=== PATIENT | male | born 1960 | race African-American/Black ===

== ENCOUNTER 2022-04-16 06:42 | Observation (INO) | payer OTHER, MEDICAID ==
[2022-04-16] MEDS ORDERED: Morphine 4 MG/ML VIAL ONE (08:03)
[2022-04-16] MEDS ORDERED: Piperacillin/Tazobactam 4.5 GM VIAL ONE (08:16)
[2022-04-16] MEDS ORDERED: Pantoprazole 40 MG VIAL ONE (08:17)
[2022-04-16 10:53] LABS: SARS-CoV-2 NAA Rapid Test Not Detected (NotDetected)
[2022-04-16] MEDS ORDERED: Midazolam HCl 2 mg/2 ml Vial ONE (11:14)
[2022-04-16] MEDS ORDERED: Lidocaine 2% MPF 10 ML AMP (For Epidural Use) ONE (11:14)
[2022-04-16] MEDS ORDERED: PROPOFOL 0 ML ONE (11:14)
[2022-04-16] MEDS ORDERED: PROPOFOL 20 ML ONE (11:25)
[2022-04-16] MEDS ORDERED: Acetaminophen 650 MG Suppository PR PRN (12:15)
[2022-04-16] MEDS ORDERED: Ondansetron PF 4 MG/2 ML Vial IVP PRN (12:15)
[2022-04-16 12:37] VITALS: BMI 21.8
[2022-04-16] MEDS: Sodium Chloride 0.9% 1,000 ML IV SCH (13:46)
[2022-04-16] MEDS: Piperacillin/Tazobactam 3.375 GM in Sodium Chloride 0.9% 100 ML IVPB SCH ×2 (13:46→21:02)
[2022-04-16 16:43] LABS: Bilirubin Neg (Negative); Blood, Urine Negative (Negative); Glucose, Urine (Dipstick) Normal (Negative); Ketone, Urine Negative (Negative); Leukocyte Negative (Negative); Nitrite Negative (Negative); Protein, Urine (Dipstick) Negative (Neg-Trace); Urobilinogen Normal mg/dL (Less than 2)
[2022-04-16 16:53] LABS: Bacteria/HPF None Seen HPF (None Seen); Clarity Clear (Clear); RBC/HPF 0-3 HPF (0-3); Squamous Epithelial 0-3 HPF (0-3); Urine Culture Reflex No No; WBC/HPF 0-3 HPF (0-3)
[2022-04-16] MEDS ORDERED: Morphine 2 MG/ML VIAL SLOW IVP PRN (19:45)
[2022-04-16] MEDS ORDERED: Sodium Chloride 0.9% 500 ML IV SCH (19:45)
[2022-04-16] MEDS ORDERED: Morphine 4 MG/ML VIAL SLOW IVP PRN (19:45)
[2022-04-16] MEDS: Famotidine/PF 20 mg/2ml Vial SLOW IVP SCH (21:02)
[2022-04-17 05:45] LABS: Hemoglobin 13.9 g/dL (13.5-17.5); Mean Corpuscular HGB CONC 34.6 g/dL (32.0-36.0); Mean Corpuscular Hemoglobin 29.8 pg (27.0-33.0); Mean Corpuscular Volume 86.3 fl (81.2-95.1); Mean Platelet Volume 9.4 fl (7.4-10.4); Platelet Count 255 10x3/uL (150-450); RBC Distribution Width 12.4 % (11.5-14.5); Red Blood Cell (RBC) Count 4.66 10x6/uL (4.32-5.72); White Blood Cell (WBC) Count 36.2 10x3/uL (3.5-10.5)
[2022-04-17] MEDS: Piperacillin/Tazobactam 3.375 GM in Sodium Chloride 0.9% 100 ML IVPB SCH ×2 (05:45→13:57)
[2022-04-17 06:45] LABS: ALT (SGPT) 25 U/L (8-55); AST (SGOT) 27 U/L (5-34); Albumin 3.7 g/dL (3.4-4.8); Alkaline Phosphatase 80 U/L (40-110); Anion Gap 17 mmol/L (10-20); BUN (Urea Nitrogen) 11 mg/dL (8.4-25.7); Bilirubin, Total 0.8 mg/dL (0.2-1.2); Calc. Creatinine Clearance 65 mL/min (70-130); Calcium 9.5 mg/dL (7.8-10.44); Carbon Dioxide 23 mmol/L (23-31); Chloride 100 mmol/L (98-107); Estimated GFR 70; Globulin 3.2 g/dL (2.4-3.5); Glucose 117 mg/dL (80-115); Potassium 4.2 mmol/L (3.5-5.1); Protein, Total 6.9 g/dL (5.8-8.1); Sodium 136 mmol/L (136-145)
[2022-04-17 07:40] LABS: MDiff Complete? YES
[2022-04-17 07:41] LABS: Platelet Morphology Comment Appears Adequate
[2022-04-17 07:42] LABS: Band 4 % (5-11); Lymphocytes 6 % (21-51); Monocytes 5 % (0-10); Neutrophil 85 % (42-75)
[2022-04-17] MEDS ORDERED: Bupivacaine PF 0.5% 30 ML VIAL ONE (07:43)
[2022-04-17] MEDS ORDERED: EPINEPHrine 1 MG/ML AMP ONE (07:43)
[2022-04-17] MEDS ORDERED: Iopamidol 0 ML ONE (07:44)
[2022-04-17] MEDS ORDERED: Dexamethasone 4 mg/ml Vial ONE (08:52)
[2022-04-17] MEDS ORDERED: Ondansetron PF 4 MG/2 ML Vial ONE (08:52)
[2022-04-17] MEDS ORDERED: Midazolam HCl 2 mg/2 ml Vial ONE (08:52)
[2022-04-17] MEDS ORDERED: Ketorolac Tromethamine 30 MG/ML VIAL ONE (08:52)
[2022-04-17] MEDS ORDERED: Rocuronium Bromide 10 MG/ML (10ML VIAL) ONE (08:52)
[2022-04-17] MEDS ORDERED: Glycopyrrolate 0.2 MG/ML 5 ML SYRINGE ONE (08:52)
[2022-04-17] MEDS ORDERED: Fentanyl 250 MCG/5 ML VIAL ONE (08:52)
[2022-04-17] MEDS ORDERED: Lidocaine 1% PF 5 ML VIAL ONE (08:52)
[2022-04-17] MEDS ORDERED: PROPOFOL 20 ML ONE (08:52)
[2022-04-17] MEDS ORDERED: Pantoprazole 40 MG VIAL IVP SCH (09:00)
[2022-04-17] MEDS ORDERED: PHENYLEPHRINE-NS 100 MCG/ML 10 ML SYRINGE ONE (09:25)
[2022-04-17] MEDS ORDERED: HYDROcodone/Acetaminophen 5/325 mg Tablet PO PRN ×2 (10:45)
[2022-04-17] MEDS: Famotidine/PF 20 mg/2ml Vial SLOW IVP SCH (12:07)
[2022-04-17] MEDS: Sodium Chloride 0.9% 1,000 ML IV SCH (13:57)
[2022-04-17 16:19] VITALS: BP 136/97; TEMP 97.7
== END 2022-04-17 19:20 | disposition home or self-care (01) ==
LOC: CSHERS 06:42 → INTOOBSV 09:37 → CSHERHOLD 09:37 → CSHTELE 12:20
PROVIDERS: ADMIT Hospitalist; ATTEND Hospitalist
PROC: 0DB98ZZ Excision of Duodenum, Via Natural or Artificial Opening Endoscopic (ICD-10-PCS; principal; 2022-04-16)
PROC: 0DB68ZZ Excision of Stomach, Via Natural or Artificial Opening Endoscopic (ICD-10-PCS; 2022-04-16)
PROC: 0FT44ZZ Resection of Gallbladder, Percutaneous Endoscopic Approach (ICD-10-PCS; 2022-04-17)
DX: K29.50 Unspecified chronic gastritis without bleeding (principal); K80.00 Calculus of gallbladder with acute cholecystitis without obstruction; K82.A1 Gangrene of gallbladder in cholecystitis; B96.81 Helicobacter pylori [H. pylori] as the cause of diseases classified elsewhere; K66.0 Peritoneal adhesions (postprocedural) (postinfection); K82.8 Other specified diseases of gallbladder; E11.9 Type 2 diabetes mellitus without complications; Z20.822 Contact with and (suspected) exposure to COVID-19; I10 Essential (primary) hypertension; E78.00 Pure hypercholesterolemia, unspecified; F03.90 Unspecified dementia, unspecified severity, without behavioral disturbance, psychotic disturbance, mood disturbance, and anxiety; K21.9 Gastro-esophageal reflux disease without esophagitis; F17.210 Nicotine dependence, cigarettes, uncomplicated; Z79.899 Other long term (current) drug therapy
CPT/HCPCS: 43239; 47562; 76705; 80053; 81001; 82962 ×2; 83605; 85025; 87040; 87149; 96372; 96374; 96375; 96376 ×2; 99285; C1713; G0378 ×3; U0002; 36415; 36416; 88304; 88305; 88342; C9113; J0171; J1100; J1885; J2250; J2270; J2405; J2543; J2704; J3010; J3490; J7030; J7050; Q9967; S0020; S0028

== ENCOUNTER 2025-06-19 08:31 | Outpatient (CLI) | payer OTHER ==
[2025-06-19] MEDS ORDERED: Iopamidol 300 61% 100 ML VIAL FS ONE (09:38)
[2025-06-19 10:16] LABS: Estimated GFR - POC 29.0
== END 2025-06-19 08:32 | disposition home or self-care (01) ==
LOC: CSHCT 08:31
PROVIDERS: ATTEND Internal Medicine Nephrology
DX: N18.4 Chronic kidney disease, stage 4 (severe) (principal); N28.89 Other specified disorders of kidney and ureter; N28.1 Cyst of kidney, acquired
CPT/HCPCS: 36415; 74178; 82565; Q9967